=== PATIENT | female | born 1985 | race Two or more races ===

== ENCOUNTER 2018-04-05 04:34 | Emergency (ER) | payer OTHER ==
[~2018-04-05] VITALS: Ht 162.6 cm; Wt 67.1 kg
== END 2018-04-05 16:04 | disposition home or self-care (01) ==
LOC: ER 04:34
DX: K59.09 Other constipation (principal); R10.2 Pelvic and perineal pain; D26.9 Other benign neoplasm of uterus, unspecified

== ENCOUNTER → 2018-05-14 | Emergency (ER) | payer OTHER ==
[~2018-05-14] VITALS: Ht 162.6 cm; Wt 65.8 kg
== END | disposition left against medical advice (07) ==
LOC: ER 09:54
DX: Z53.20 Procedure and treatment not carried out because of patient's decision for unspecified reasons (principal)